=== PATIENT | male | born 1995 ===

== ENCOUNTER 2021-05-29 16:15 | Emergency (ER) | payer BC ==
[2021-05-29] MEDS: Amoxicillin/Clavulanate K 875-125 MG Tab PO ONE (16:30)
== END 2021-05-29 16:46 | disposition home or self-care (01) ==
LOC: LB.ED 16:15
DX: H65.113 Acute and subacute allergic otitis media (mucoid) (sanguinous) (serous), bilateral (principal)
CPT/HCPCS: 99281; 99283; A9270-GY